=== PATIENT | female | born 1990 | race African-American/Black ===

== ENCOUNTER 2019-01-30 10:21 | Emergency (ER) | payer OTHER ==
[2019-01-30 10:29] VITALS: BMI 30.7
[2019-01-30] MEDS ORDERED: SODIUM CHLORIDE 1,000 ML IV STA (11:00)
[2019-01-30] MEDS ORDERED: ACETAMINOPHEN 1000 MG/100 ML VIAL (NON FORMULARY) IVPB ONE (11:01)
[2019-01-30] MEDS ORDERED: METOCLOPRAMIDE HCL INJECTION 10 MG/2 ML VIAL IVPB ONE (11:01)
--- NOTE | 2019-01-30 11:01 | PDOC ---
History of Present Illness - General Chief Complaint: Headache Stated Complaint: MIGRAINE HEADACHE Time Seen by Provider: 01/30/19 10:32 History Source: Patient Exam Limitations: No Limitations - History of Present Illness Initial Comments: 01/30/19 12:08 Patient is a 28-year-old female currently 13 weeks , who presents to the emergency department today for headache. Patient states that the headache is on the right side. She states she has had this headache for 2 weeks. She states that she has history of migraines and usually takes ibuprofen however since she is she cannot take ibuprofen. She's been taking Tylenol with minimal relief of her symptoms. Admits to associated lightheadedness, photophobia, phonophobia.. Denies fevers, chills, neck pain, shortness of breath , difficulty breathing, weakness, dizziness, nausea and vomiting. Past History - Travel Traveled outside of the country in the last 30 days: No Close contact w/someone who was outside of country & ill: No - Past Medical History Allergies/Adverse Reactions: Allergies Allergy/AdvReac Type Severity Reaction Status Date / Time No Known Allergies Allergy Verified 01/30/19 10:25 Home Medications: Ambulatory Orders Pnv No.121/Iron/Folic Acid [ Multivitamin Tablet] 1 each PO DAILY COPD: No - Immunization History Immunization Up to Date: Yes - Suicide/Smoking/Psychosocial Hx Smoking History: Current every day smoker Number of Cigarettes Smoked Daily: 20 Information on smoking cessation initiated: No Hx Alcohol Use: No Drug/Substance Use Hx: No Review of Systems - Review of Systems Able to Perform ROS?: Yes Comments:: 01/30/19 12:07 CONSTITUTIONAL: Absent: fever, chills, diaphoresis, generalized weakness, malaise, loss of appetite HEENT: Absent: rhinorrhea, nasal congestion, throat pain, throat swelling, difficulty swallowing, mouth swelling, ear pain, eye pain, visual Changes CARDIOVASCULAR: Absent: chest pain, loss of consciousness, palpitations, irregular heart rate, peripheral edema RESPIRATORY: Absent: cough, shortness of breath, dyspnea with exertion, orthopnea, wheezing, stridor, hemoptysis GASTROINTESTINAL: Absent: abdominal pain, abdominal distension, nausea, vomiting, diarrhea, constipation, melena, hematochezia GENITOURINARY: Absent: dysuria, frequency, urgency, hesitancy, hematuria, flank pain, genital pain MUSCULOSKELETAL: Absent: myalgia, arthralgia, joint swelling SKIN: Absent: rash, itching, pallor HEMATOLOGIC/IMMUNOLOGIC: Absent: easy bleeding, easy bruising, lymphadenopathy, frequent infections ENDOCRINE: Absent: unexplained weight gain, unexplained weight loss, heat intolerance, cold intolerance NEUROLOGIC: Present: headache Absent: focal weakness or paresthesias, dizziness, unsteady gait, seizure, mental status changes, bladder or bowel incontinence PSYCHIATRIC: Absent: anxiety, depression, suicidal or homicidal ideation, hallucinations. Is the patient limited Maltese proficient: No *Physical Exam - Vital Signs Last Vital Signs Temp Pulse Resp BP Pulse Ox 98.5 F 84 18 129/67 100 01/30/19 10:25 01/30/19 10:25 01/30/19 10:25 01/30/19 10:25 01/30/19 10:25 - Physical Exam Comments: 01/30/19 12:08 GENERAL: Well developed, well nourished. Awake and alert. No acute distress. HEENT: Normocephalic, atraumatic. PERRLA, EOMI. No conjunctival pallor. Sclera are non- icteric. Moist mucous membranes. Oropharynx is clear. NECK: Supple. Full ROM. No JVD. Carotid pulses 2+ and symmetric, without bruits. No thyromegaly. No lymphadenopathy. CARDIOVASCULAR: Regular rate and rhythm. No murmurs, rubs, or gallops. Distal pulses are 2+ and symmetric. PULMONARY: No evidence of respiratory distress. Lungs clear to auscultation bilaterally. No wheezing, rales or rhonchi. ABDOMINAL: Soft. Non-tender. Non-distended. No rebound or guarding. No organomegaly. Normoactive bowel sounds. MUSCULOSKELETAL Normal range of motion at all joints. No bony deformities or tenderness. No CVA tenderness. EXTREMITIES: No cyanosis. No clubbing. No edema. No calf tenderness. SKIN: Warm and dry. Normal capillary refill. No rashes. No jaundice. NEUROLOGICAL: Alert, awake, appropriate. Cranial nerves 2-12 intact. No deficits to light touch and temperature in face, upper extremities and lower extremities. No motor deficits in the in face, upper extremities and lower extremities. Normoreflexic in the upper and lower extremities. Normal speech. Toes are down- going bilaterally. Gait is normal without ataxia. PSYCHIATRIC: Cooperative. Good eye contact. Appropriate mood and affect. Moderate Sedation - Procedure Monitoring Vital Signs: Procedure Monitoring Vital Signs Temperature 98.5 F 01/30/19 10:25 Pulse Rate 84 01/30/19 10:25 Respiratory Rate 18 01/30/19 10:25 Blood Pressure 129/67 01/30/19 10:25 O2 Sat by Pulse Oximetry (%) 100 01/30/19 10:25 ED Treatment Course - LABORATORY CBC & Chemistry Diagram: 01/30/19 11:20 01/30/19 11:30 Medical Decision Making - Medical Decision Making 01/30/19 13:11 Patient is a 28-year-old female currently 15 weeks , who presents to the emergency department today for headache for 2 weeks. Patient has history of migraines. On exam patient is neurologically intact with no focal findings. Negative Babinski and Kernig signs. Patient treated with Reglan, Benadryl and IV Tylenol. Patient with leukocytosis to 18 however no shift, urine is clear. Possible normal variant in . Patient reports relief of headache. We'll discharge home with OB follow-up I discussed the physical exam findings, ancillary test results and final diagnoses with the patient. I answered all of the patient's questions. The patient was satisfied with the care received and felt comfortable with the discharge plan and treatment plan. The Patient agrees to follow up with the primary care physician/specialist within 24-72 hours. Return precautions were given. *DC/Admit/Observation/Transfer Diagnosis at time of Disposition: Migraine Qualifiers: Migraine type: unspecified Status migrainosus presence: without status migrainosus Intractability: not intractable Qualified Code(s): G43.909 - Migraine, unspecified, not intractable, without status migrainosus - Discharge Dispostion Disposition: HOME Condition at time of disposition: Stable Decision to Admit order: No - Referrals Referrals: Jose De Jesus Norris MD [Staff Physician] - - Patient Instructions Printed Discharge Instructions: DI for Migraine Additional Instructions: You were treated for your migraine today. Please take Tylenol thousand milligrams every 8 hours as needed for headache, not to exceed 4000 mg a day. Please take Tylenol for the next 24 hours even if you do not have a headache to keep the symptoms at bay. Drink plenty of fluids Please follow-up with your SHOE STAINER this week. Return to the ER for worsening headache, vomiting, or if you have any changes in your symptoms. - Post Discharge Activity Forms/Work/School Notes: Back to Work
[2019-01-30] MEDS ORDERED: ACETAMINOPHEN INJECTION 100 ML IVPB ONE (11:06)
[2019-01-30] MEDS ORDERED: METOCLOPRAMIDE HCL INJECTION 10 MG/2 ML VIAL ONE (11:06)
--- NOTE | 2019-01-30 11:28 | PDOC ---
*Physical Exam - Vital Signs Last Vital Signs Temp Pulse Resp BP Pulse Ox 98.5 F 84 18 129/67 100 01/30/19 10:25 01/30/19 10:25 01/30/19 10:25 01/30/19 10:25 01/30/19 10:25 ED Treatment Course - LABORATORY CBC & Chemistry Diagram: 01/30/19 11:20 01/30/19 11:30 Medical Decision Making - Medical Decision Making 01/30/19 11:25 Ms. Sarkar presents to the ER with a complaint of headache present for headache which has been present for 2 weeks No fevers or chills No trauma Pt seen by Midlevel Provider under my direct supervision I agree with plan as outlined by AARON song *DC/Admit/Observation/Transfer Diagnosis at time of Disposition: Migraine - Discharge Dispostion Disposition: HOME Condition at time of disposition: Stable - Referrals Referrals: Jose De Jesus Norris MD [Staff Physician] - - Patient Instructions Printed Discharge Instructions: DI for Migraine Additional Instructions: You were treated for your migraine today. Please take Tylenol thousand milligrams every 8 hours as needed for headache, not to exceed 4000 mg a day. Please take Tylenol for the next 24 hours even if you do not have a headache to keep the symptoms at bay. Drink plenty of fluids Please follow-up with your NUCLEAR WASTE MANAGEMENT ENGINEER this week. Return to the ER for worsening headache, vomiting, or if you have any changes in your symptoms. - Post Discharge Activity Forms/Work/School Notes: Back to Work
[2019-01-30 11:41] LABS: BASO % 0.2 % (0-2.0); HEMATOCRIT 35.3 % (32.4-45.2); HEMOGLOBIN 12.1 GM/dL (10.7-15.3); LYMPH % 11.6 % (8-40); MCH 31.8 pg (25.7-33.7); MCHC 34.2 g/dl (32.0-36.0); MEAN CELL VOLUME 92.9 fl (80-96); MONO % 7.1 % (3.8-10.2); NEUT % 80.1 % (42.8-82.8); PLATELET COUNT 295 K/MM3 (134-434); WHITE BLOOD COUNT 18.5 K/mm3 (4.0-10.0)
[2019-01-30 11:57] LABS: URINE APPEARANCE CLEAR; URINE BILIRUBIN NEGATIVE (<2.0 mg/dL); URINE COLOR LTYELLOW; URINE GLUCOSE (UA) NEGATIVE (NEGATIVE); URINE KETONE NEGATIVE (NEGATIVE); URINE LEUK ESTERASE NEGATIVE (NEGATIVE); URINE NITRITE NEGATIVE (NEGATIVE); URINE PROTEIN NEGATIVE (NEGATIVE); URINE UROBILINOGEN NEGATIVE mg/dL (0.2-1.0)
[2019-01-30 12:05] LABS: ALBUMIN 2.8 g/dl (3.4-5.0); ALK PHOS 107 U/L (45-117); ANION GAP 7 MMOL/L (8-16); BILIRUBIN,TOTAL 0.2 mg/dL (0.2-1); BLOOD UREA NITROGEN 7 mg/dL (7-18); CALCIUM 8.7 mg/dL (8.5-10.1); CHLORIDE 105 mmol/L (98-107); CO2 26 mmol/L (21-32); CREATININE 0.5 mg/dL (0.55-1.3); GLUCOSE,RANDOM 81 mg/dL (74-106); POTASSIUM 3.9 mmol/L (3.5-5.1); SGOT/AST 22 U/L (15-37); SGPT/ALT 34 U/L (13-61); SODIUM 137 mmol/L (136-145); TOT PROT 6.7 g/dl (6.4-8.2)
[2019-01-30 13:52] VITALS: BP 106/78; PULSE 82; TEMP 98.3
== END 2019-01-30 13:52 | disposition home or self-care (01) ==
LOC: JER 10:21
PROC: 3E033NZ Introduction of Analgesics, Hypnotics, Sedatives into Peripheral Vein, Percutaneous Approach (ICD-10-PCS; principal; 2019-01-30)
PROC: 3E033GC Introduction of Other Therapeutic Substance into Peripheral Vein, Percutaneous Approach (ICD-10-PCS; 2019-01-30)
PROC: 3E033GC Introduction of Other Therapeutic Substance into Peripheral Vein, Percutaneous Approach (ICD-10-PCS; 2019-01-30)
DX: O99.89 Other specified diseases and conditions complicating pregnancy, childbirth and the puerperium (principal); O99.352 Diseases of the nervous system complicating pregnancy, second trimester; G43.909 Migraine, unspecified, not intractable, without status migrainosus; Z3A.15 15 weeks gestation of pregnancy
CPT/HCPCS: 36415; 80053; 81003; 85025; 87086; 99284-25; J0131; J7030

== ENCOUNTER 2019-05-03 13:19 | Emergency (ER) | payer OTHER ==
[2019-05-03 13:26] VITALS: TEMP 98.2; BMI 30.4
[2019-05-03] MEDS ORDERED: SODIUM CHLORIDE 0.9% 1000 ML INFUS.BAG IV ONE (14:58)
[2019-05-03] MEDS ORDERED: ONDANSETRON 4 MG/2 ML VIAL IVPUSH ONE (14:59)
[2019-05-03] MEDS ORDERED: ONDANSETRON 4 MG/2 ML VIAL ONE (15:03)
--- NOTE | 2019-05-03 15:05 | PDOC ---
Documentation entered by Danielle Espitia SCRIBE, acting as scribe for Guevara Santoyo MD. Guevara Santoyo MD: This documentation has been prepared by the Nupur jain Sammi, SCRIBE, under my direction and personally reviewed by me in its entirety. I confirm that the documentation accurately reflects all work, treatment, procedures, and medical decision making performed by me. Attending Attestation - Resident Resident Name: Dayana Cullen
[2019-05-03 15:22] LABS: BASO % 0.4 % (0-2.0); EOS % 1.1 % (0-4.5); HEMATOCRIT 33.6 % (32.4-45.2); HEMOGLOBIN 11.2 GM/dL (10.7-15.3); LYMPH % 16.2 % (8-40); MCHC 33.3 g/dl (32.0-36.0); MEAN CELL VOLUME 93.1 fl (80-96); MEAN PLT VOLUME 8.4 fl (7.5-11.1); MONO % 6.6 % (3.8-10.2); NEUT % 75.7 % (42.8-82.8); RBC 3.61 M/mm3 (3.60-5.2); RDW 12.4 % (11.6-15.6); WHITE BLOOD COUNT 16.3 K/mm3 (4.0-10.0)
--- NOTE | 2019-05-03 15:44 | PDOC ---
Documentation entered by Danielle Espitia SCRIBE, acting as scribe for Guevara Santoyo MD. Guevara Santoyo MD: This documentation has been prepared by the Nupur jain Sammi, SCRIBE, under my direction and personally reviewed by me in its entirety. I confirm that the documentation accurately reflects all work, treatment, procedures, and medical decision making performed by me. History of Present Illness - General Chief Complaint: Nausea/Vomiting Stated Complaint: 28 W VOMITING Time Seen by Provider: 05/03/19 14:58 - History of Present Illness Initial Comments: 05/03/19 15:22 The patient is a 29 year old female, 29 weeks , who presents to the emergency department for evaluation of 1 week of nausea and vomiting, about 3 episodes a day. The patient was advised by her OB to come in to the ED if symptoms persist more than a week. She reports decreased oral intake over the past week. The patient denies chest pain, shortness of breath, headache and dizziness. Denies fever, chills, nausea, vomit, diarrhea and constipation. Denies dysuria, frequency, urgency and hematuria. Allergies: [facility] E[employer]MENT[employer] S[employer]OL REGISTRAR: Dr Mellisa Burns Past History - Past Medical History Allergies/Adverse Reactions: Allergies Allergy/AdvReac Type Severity Reaction Status Date / Time No Known Allergies Allergy Verified 05/03/19 13:41 Home Medications: Ambulatory Orders Pnv No.121/Iron/Folic Acid [ Multivitamin Tablet] 1 each PO DAILY Doxylamine Succinate/Vit B6 [Ivan Hoyos 10-10 mg Tablet] 1 each PO DAILY 7 Days #30 tablet. 05/03/19 COPD: No - Reproductive History Is Patient Now?: Yes (#): 3 Para: 3 - Immunization History Immunization Up to Date: Yes - Suicide/Smoking/Psychosocial Hx Smoking History: Never smoked Have you smoked in the past 12 months: No Number of Cigarettes Smoked Daily: 20 Information on smoking cessation initiated: No Hx Alcohol Use: No Drug/Substance Use Hx: No Review of Systems - Review of Systems Comments:: 05/03/19 15:22 ROS: A complete review of 10 out of 10 review of systems is taken and is negative apart from what is previously mentioned below and in the HPI. *Physical Exam - Vital Signs Last Vital Signs Temp Pulse Resp BP Pulse Ox 98.2 F 74 18 93/59 L 100 05/03/19 13:23 05/03/19 13:23 05/03/19 13:23 05/03/19 13:23 05/03/19 13:23 - Physical Exam Comments: 05/03/19 15:29 Vitals: Triage vital signs reviewed General Appearance: No acute distress, well nourished, well developed Neck: Supple; No nuchal rigidity Cardiac: Regular rate and rhythm, no murmurs, no rubs, no gallops Lungs: Clear to auscultation bilateral, good air movement bilaterally Abdomen: Soft, nondistended, normal bowel sounds, nontender to palpation Extremities: Full range of motion to all extremities, no cyanosis, clubbing, or edema Skin: Warm and dry, no rashes or lesions, no rash, no petechiae ED Treatment Course - LABORATORY CBC & Chemistry Diagram: 05/03/19 15:12 05/03/19 15:12 - Medications Given in the ED: ED Medications Discontinued Medications Generic Name Dose Route Start Last Admin Trade Name Freq PRN Reason Stop Dose Admin Ondansetron HCl 4 mg 05/03/19 14:59 05/03/19 15:15 Zofran Injection IVPUSH 05/03/19 15:00 4 mg ONCE ONE Administration Sodium Chloride 1,000 ml 05/03/19 14:58 05/03/19 15:15 Normal Saline - IV 05/03/19 14:59 1,000 ml ONCE ONE Administration Medical Decision Making - Medical Decision Making 05/03/19 16:24 29 years old with one-week history of nausea vomiting approximately 3 episodes a day. No abdominal pain no dysuria, feels baby moving Patient has struggled with emesis her entire Labs notable for slightly elevated WBC. This was discussed with patient. This may be normal secondary to her or secondary to a viral GI illness. She has absolutely no abdominal pain on her examination. She is currently feeling better after Zofran and fluids. She is tolerating fluids by mouth. She' ll follow-up with her ELEMENTARY SCHOOL REGISTRAR on Sunday. She'll return to the emergency department for any fever persistent vomiting any abdominal discomfort or for any concerns I had ordered a urinalysis on the patient the patient was unable to give a sample. She did not want to wait to give a sample but she'll return to the ED for any urinary symptoms otherwise she'll follow-up with her ELEMENTARY SCHOOL REGISTRAR on Sunday Findings, the need for follow-up and strict return instructions discussed patient. *DC/Admit/Observation/Transfer Diagnosis at time of Disposition: Acute vomiting - Discharge Dispostion Disposition: HOME Condition at time of disposition: Stable Decision to Admit order: No - Prescriptions Prescriptions: Doxylamine Succinate/Vit B6 [Ivan Hoyos 10-10 mg Tablet] 1 each PO DAILY 7 Days #30 tablet. - Referrals Referrals: [facility] [place] [Provider Group] - Patient Instructions - Post Discharge Activity Forms/Work/School Notes: Back to Work
[2019-05-03 15:47] LABS: ALBUMIN 2.7 g/dl (3.4-5.0); BILIRUBIN,TOTAL 0.2 mg/dL (0.2-1); BLOOD UREA NITROGEN 9.2 mg/dL (7-18); CALCIUM 8.9 mg/dL (8.5-10.1); CREATININE 0.5 mg/dL (0.55-1.3); POTASSIUM 4.2 mmol/L (3.5-5.1); TOT PROT 6.3 g/dl (6.4-8.2)
[2019-05-03 17:14] VITALS: BP 98/62; PULSE 72
[2019-05-03 18:26] LABS: PLATELET COUNT 232 K/MM3 (134-434); PLATELET ESTIMATE ADEQUATE
== END 2019-05-03 17:00 | disposition home or self-care (01) ==
LOC: JER 13:19
PROC: 3E033GC Introduction of Other Therapeutic Substance into Peripheral Vein, Percutaneous Approach (ICD-10-PCS; principal; 2019-05-03)
PROC: 3E0337Z Introduction of Electrolytic and Water Balance Substance into Peripheral Vein, Percutaneous Approach (ICD-10-PCS; 2019-05-03)
DX: O26.893 Other specified pregnancy related conditions, third trimester (principal); O21.2 Late vomiting of pregnancy; Z3A.28 28 weeks gestation of pregnancy
CPT/HCPCS: 36415; 80053; 85025; 96374; 99283-25; J7030

== ENCOUNTER 2019-07-06 11:30 | Inpatient (IN) | payer OTHER | END 2019-07-08 13:00 | disposition home or self-care (01) | LOC: JLDR 11:30 → J3W 14:02 ==